=== PATIENT | female | born 2000 ===

== ENCOUNTER 2018-01-07 16:10 | Emergency (ER) | payer OTHER ==
[~2018-01-07] VITALS: Ht 170.2 cm; Wt 57.0 kg
[2018-01-07 16:19] VITALS: BP 158/113; PULSE 80; RESP 19; O2SAT 99
[2018-01-07 16:25] VITALS: BP 158/113; PULSE 80; RESP 19; TEMP 98.7; O2SAT 99
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
[2018-01-07] MEDS ORDERED: ONDANSETRON ODT 4 MG TAB PO ONE (16:30)
[2018-01-07] MEDS ORDERED: BIRTH CONTROL (16:30)
[2018-01-07] MEDS ORDERED: ACETAMINOPHEN/HYDROcodone 325 MG/5 MG TAB PO ONE (16:45)
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
[2018-01-07] MEDS ORDERED: ROBA500T PO (18:24)
[2018-01-07] MEDS ORDERED: IBUP1TAB7 PO (18:24)
[2018-01-07] MEDS ORDERED: TRAM50TA PO (18:24)
== END 2018-01-07 19:49 | disposition home or self-care (01) ==
LOC: NEPD 16:10
DX: S09.90XA Unspecified injury of head, initial encounter (principal); M54.2 Cervicalgia; S59.902A Unspecified injury of left elbow, initial encounter; M25.512 Pain in left shoulder; M25.552 Pain in left hip; M54.5 Low back pain; V09.9XXA Pedestrian injured in unspecified transport accident, initial encounter
CPT/HCPCS: 70450; 71045; 72125; 72131; 73030; 73080; 73502; 99284; E0113; L0150